=== PATIENT | male | born 1980 | race Caucasian/White ===

== ENCOUNTER 2018-06-15 07:49 | Emergency (ER) | payer OTHER ==
[~2018-06-15] VITALS: Ht 182.9 cm; Wt 112.5 kg
[2018-06-15 07:50] VITALS: BP 153/79
--- NOTE | 2018-06-15 07:55 | NUR ---
37y/m bib self with c/o right leg pain since last Wednesday, states "I think it's sciatica pain." Denies any injury or fall, - swelling, - redness, + rom, pt [id number], vss, bed down, low locked, bedrail up x 1, er md aware and notified of pt status. hx denies
--- NOTE | 2018-06-15 08:08 | NUR ---
Patient being evaluated by physician at bedside.
[2018-06-15] MEDS ORDERED: ACETAMINOPHEN 325 MG TAB PO ONE (08:10)
[2018-06-15] MEDS ORDERED: KETOROLAC 30 MG/ML VIAL IM ONE (08:10)
[2018-06-15 08:40] VITALS: BP 163/96
--- NOTE | 2018-06-15 08:40 | NUR ---
Patient discharged with v/s stable. Written and verbal after care instructions given and explained. Patient alert, oriented and verbalized understanding of instructions. Ambulatory with steady gait. All questions addressed prior to discharge. ID band removed. Patient advised to follow up with PMD. Rx of gabapentin, tylenol given. Patient educated on indication of medication including possible reaction and side effects. Opportunity to ask questions provided and answered.
== END 2018-06-15 08:40 | disposition home or self-care (01) ==
LOC: MED 07:49
DX: M54.41 Lumbago with sciatica, right side (principal)
CPT/HCPCS: 96372; 99283; J1885